=== PATIENT | female | born 2000 | race Caucasian/White ===

== ENCOUNTER 2018-06-28 22:24 | Emergency (ER) | payer MEDICAID ==
[~2018-06-28] VITALS: Ht 157.5 cm; Wt 77.0 kg
[~2018-06-28 22:24] MED LIST: DOCU-131 PO; IBUP-1222 PO; OXYC-302 PO; PREN1COM10 PO
[2018-06-28 22:27] VITALS: BP 135/78
== END 2018-06-28 23:11 | disposition home or self-care (01) ==
LOC: ED 23:05
DX: H10.33 Unspecified acute conjunctivitis, bilateral (principal)
CPT/HCPCS: 99283

== ENCOUNTER 2018-09-15 17:44 | Emergency (ER) | payer MEDICAID ==
[~2018-09-15] VITALS: Ht 157.5 cm; Wt 72.4 kg
[2018-09-15] MEDS ORDERED: PRENATAL VITS (17:50)
--- NOTE | 2018-09-15 18:06 | NUR ---
Pt presents for nausea and vomiting, increasing x 1 week. Pt states 9 weeks . No at this time. Only able to tolerate minimal po fluids. No abd pain or diarrhea, no discharge or bleeding. Appears NAD at this time.
[2018-09-15 18:29] LABS: BASOPHILS # (AUTO) 0.08 x10^3/uL (0-0.3); BASOPHILS % (AUTO) 1 % (0-1); EOSINOPHILS # (AUTO) 0.05 x10^3/uL (0-0.8); EOSINOPHILS % (AUTO) 0 % (1-7); LYMPHOCYTES # (AUTO) 1.76 x10^3/uL (1-6.1); LYMPHOCYTES % (AUTO) 15 % (22-44); MD NO; MEAN CORPUSCULAR HEMOGLOBIN 32.1 pg (27.0-34.8); MEAN CORPUSCULAR HGB CONC 34.6 g/dL (32.4-35.8); MEAN CORPUSCULAR VOLUME 92.6 fL (80-100); MEAN PLATELET VOLUME 9.1 fL (7.4-10.4); MONOCYTES # (AUTO) 1.13 x10^3/uL (0-1.4); MONOCYTES % (AUTO) 9 % (2-9); NEUTROPHILS # (AUTO) 9.07 x10^3/uL (1.8-8.0); NEUTROPHILS % (AUTO) 75 % (42-75); PLATELET COUNT 259 x10^3/uL (130-400); RED BLOOD COUNT 4.58 x10^6/uL (3.82-5.3); RED CELL DISTRIBUTION WIDTH 12.4 % (9.6-15.2)
[2018-09-15] MEDS ORDERED: ACETAMINOPHEN 500 MG TABLET PO ONE (18:30)
[2018-09-15] MEDS ORDERED: ONDANSETRON 2MG/ML, 2ML IVPush ONE (18:30)
[2018-09-15] MEDS ORDERED: SODIUM CHLORIDE 0.9% 1,000ML IVBOLUS ONE (18:30)
[2018-09-15 18:37] LABS: ALANINE AMINOTRANSFERASE 37 U/L (12-78); ALBUMIN 3.8 g/dL (3.4-5.0); ANION GAP 8 mmol/L (5-15); CHLORIDE 106 mmol/L (98-107)
[2018-09-15] MEDS ORDERED: ACETAMINOPHEN 500 MG TABLET ONE (18:38)
[2018-09-15] MEDS ORDERED: ONDANSETRON 2MG/ML, 2ML ONE (18:38)
[2018-09-15] MEDS ORDERED: PYRIDOXINE 25MG TABLET PO SCH (18:47)
--- NOTE | 2018-09-15 18:51 | NUR ---
Report to Emily GUTHRIE
[2018-09-15 18:55] LABS: ALKALINE PHOSPHATASE 122 U/L (45-117); BILIRUBIN,TOTAL 0.7 mg/dL (0.2-1.0); TOTAL PROTEIN 7.8 g/dL (6.4-8.2)
--- NOTE | 2018-09-15 19:04 | NUR ---
assumed care of pt, katrin piv meds given, ua sent to lab
[2018-09-15 19:08] VITALS: BP 114/72
--- NOTE | 2018-09-15 19:30 | NUR ---
po challenge given
[2018-09-15 19:42] LABS: MICROSCOPIC INDICATED
[2018-09-15 19:45] LABS: CULTURE INDICATED? NO
--- NOTE | 2018-09-15 19:58 | NUR ---
PT TOLERATED PO FLUID CHALLENGE
--- NOTE | 2018-09-15 20:19 | NUR ---
Patient/Caregiver given discharge instructions and they have confirmed that they understand the instructions. Patient ambulatory with steady gait.
[2018-09-15] MEDS ORDERED: DOXYLAMINE 25MG TABLET PO SCH (21:00)
== END 2018-09-15 20:19 | disposition home or self-care (01) ==
LOC: ED 18:33
DX: O21.1 Hyperemesis gravidarum with metabolic disturbance (principal); O26.891 Other specified pregnancy related conditions, first trimester; G44.209 Tension-type headache, unspecified, not intractable; E86.0 Dehydration; Z3A.09 9 weeks gestation of pregnancy; Z98.890 Other specified postprocedural states
CPT/HCPCS: 36415; 80053; 81001; 84702; 85025; 93005; 96361; 96374; 99284; J2405; J7030

== ENCOUNTER 2018-10-01 14:16 | Emergency (ER) | payer MEDICAID ==
[~2018-10-01] VITALS: Ht 157.5 cm; Wt 69.3 kg
[~2018-10-01 14:16] MED LIST changes: +PRENATAL VITS
[2018-10-01] MEDS ORDERED: ONDANSETRON ODT 4 MG PO ONE (15:30)
[2018-10-01 15:48] LABS: CULTURE INDICATED? YES; MICROSCOPIC INDICATED
[2018-10-01 16:12] LABS: BASOPHILS # (AUTO) 0.02 x10^3/uL (0-0.3); BASOPHILS % (AUTO) 0 % (0-1); EOSINOPHILS # (AUTO) 0.04 x10^3/uL (0-0.8); EOSINOPHILS % (AUTO) 0 % (1-7); LYMPHOCYTES # (AUTO) 1.39 x10^3/uL (1-6.1); LYMPHOCYTES % (AUTO) 14 % (22-44); MD NO; MEAN CORPUSCULAR HEMOGLOBIN 31.3 pg (27.0-34.8); MEAN CORPUSCULAR HGB CONC 34.3 g/dL (32.4-35.8); MEAN CORPUSCULAR VOLUME 91.3 fL (80-100); MEAN PLATELET VOLUME 8.9 fL (7.4-10.4); MONOCYTES # (AUTO) 0.75 x10^3/uL (0-1.4); MONOCYTES % (AUTO) 7 % (2-9); NEUTROPHILS # (AUTO) 8.04 x10^3/uL (1.8-8.0); NEUTROPHILS % (AUTO) 79 % (42-75); PLATELET COUNT 264 x10^3/uL (130-400); RED BLOOD COUNT 4.16 x10^6/uL (3.82-5.3); RED CELL DISTRIBUTION WIDTH 12.1 % (9.6-15.2)
[2018-10-01 16:27] LABS: ALANINE AMINOTRANSFERASE 64 U/L (12-78); ALBUMIN 3.7 g/dL (3.4-5.0); ANION GAP 10 mmol/L (5-15); CALCIUM 12.5 mg/dL (8.5-10.1); CHLORIDE 105 mmol/L (98-107)
[2018-10-01 16:44] LABS: ALKALINE PHOSPHATASE 115 U/L (45-117); BILIRUBIN,TOTAL 1.3 mg/dL (0.2-1.0); TOTAL PROTEIN 7.6 g/dL (6.4-8.2)
[2018-10-01 18:12] VITALS: BP 125/70
[2018-10-01] MEDS ORDERED: PREN-3 PO (18:15)
[2018-10-01] MEDS ORDERED: METOCLOPRAMIDE 10MG TABLET PO ONE (18:30)
[2018-10-01] MEDS ORDERED: METOCLOPRAMIDE 10MG TABLET ONE (18:37)
--- NOTE | 2018-10-01 18:49 | NUR ---
Pt report from anuel langley. This rn to assume care of pt. Awaiting successful po challenge for d/c.
[2018-10-01] MEDS ORDERED: ONDANSETRON ODT 4 MG ONE (18:57)
--- NOTE | 2018-10-01 19:10 | NUR ---
Pt still puking in room. Given zofran per mar at this time. Wctm.
--- NOTE | 2018-10-01 19:32 | NUR ---
No emesis noted post second multimedia author. Pt able to tolerate po intake at this time. Tbdc.
[2018-10-01] MEDS ORDERED: PROMETHAZINE 25 MG/ML, 1ML ONE (19:36)
--- NOTE | 2018-10-01 19:38 | NUR ---
Pt found puking again and "would like something stronger." prior to d/c. notified. this to give med per mar.
[2018-10-01] MEDS ORDERED: PROMETHAZINE 25 MG/ML, 1ML IM ONE (20:00)
== END 2018-10-01 19:56 | disposition home or self-care (01) ==
LOC: ED 18:25
DX: O21.9 Vomiting of pregnancy, unspecified (principal); O26.891 Other specified pregnancy related conditions, first trimester; R07.0 Pain in throat; R10.9 Unspecified abdominal pain; Z3A.11 11 weeks gestation of pregnancy
CPT/HCPCS: 36415; 76801; 80053; 81001; 84702; 85025; 87086; 96372; 99284; J2550; Q0162

== ENCOUNTER 2018-10-18 20:19 | Emergency (ER) | payer MEDICAID ==
[~2018-10-18] VITALS: Ht 157.5 cm; Wt 68.6 kg
[~2018-10-18 20:19] MED LIST changes: +PREN-3 PO
[2018-10-18 21:48] LABS: BASOPHILS # (AUTO) 0.03 x10^3/uL (0-0.3); BASOPHILS % (AUTO) 0 % (0-1); EOSINOPHILS # (AUTO) 0.01 x10^3/uL (0-0.8); EOSINOPHILS % (AUTO) 0 % (1-7); LYMPHOCYTES # (AUTO) 1.38 x10^3/uL (1-6.1); LYMPHOCYTES % (AUTO) 13 % (22-44); MD NO; MEAN CORPUSCULAR HEMOGLOBIN 31.8 pg (27.0-34.8); MEAN CORPUSCULAR HGB CONC 34.6 g/dL (32.4-35.8); MEAN CORPUSCULAR VOLUME 91.7 fL (80-100); MEAN PLATELET VOLUME 8.8 fL (7.4-10.4); MONOCYTES % (AUTO) 7 % (2-9); NEUTROPHILS # (AUTO) 8.54 x10^3/uL (1.8-8.0); NEUTROPHILS % (AUTO) 80 % (42-75); PLATELET COUNT 292 x10^3/uL (130-400); RED BLOOD COUNT 3.85 x10^6/uL (3.82-5.3); RED CELL DISTRIBUTION WIDTH 13.2 % (9.6-15.2)
--- NOTE | 2018-10-18 21:51 | NUR ---
PT C/O EPIGASTRIC PAIN FOR FIVE DAYS WITH N/V AND SPOTTING. PT IS 15 WEEKS . PT UP TO RESTROOM FOR UA SPECIMEN. DR. STEVEN AT BEDSIDE.
[2018-10-18 21:59] LABS: ALANINE AMINOTRANSFERASE 55 U/L (12-78); ALBUMIN 3.6 g/dL (3.4-5.0); ANION GAP 8 mmol/L (5-15); CALCIUM 12.7 mg/dL (8.5-10.1); CHLORIDE 107 mmol/L (98-107); CREATININE 0.81 mg/dL (0.55-1.02)
[2018-10-18] MEDS ORDERED: DIPHENHYDRAMINE 50 MG/ML, 1ML IVPush ONE (22:00)
[2018-10-18] MEDS ORDERED: ONDANSETRON 2MG/ML, 2ML IVPush ONE (22:00)
[2018-10-18] MEDS ORDERED: SODIUM CHLORIDE FLUSH 10ML SYR IVF ONE (22:00)
[2018-10-18] MEDS ORDERED: SODIUM CHLORIDE 0.9% 1,000ML IVBOLUS ONE (22:00)
[2018-10-18] MEDS ORDERED: PROMETHAZINE 25 MG/ML, 1ML IM ONE (22:00)
[2018-10-18 22:01] LABS: ALKALINE PHOSPHATASE 103 U/L (45-117); BILIRUBIN,TOTAL 1.3 mg/dL (0.2-1.0); TOTAL PROTEIN 7.7 g/dL (6.4-8.2)
--- NOTE | 2018-10-18 22:05 | NUR ---
REPORT OF PT FROM JERRI HOLLY AND ASSUMING CARE OF PT AT THIS TIME.
--- NOTE | 2018-10-18 22:08 | NUR ---
PT TO CT VIA [facility].
[2018-10-18 22:16] LABS: CULTURE INDICATED? YES; MICROSCOPIC INDICATED
[2018-10-18] MEDS ORDERED: DIPHENHYDRAMINE 50 MG/ML, 1ML ONE (22:18)
[2018-10-18] MEDS ORDERED: ONDANSETRON 2MG/ML, 2ML ONE (22:19)
[2018-10-18] MEDS ORDERED: PROMETHAZINE 25 MG/ML, 1ML ONE (22:19)
--- NOTE | 2018-10-18 22:39 | NUR ---
IV ACCESS ESTABLISHED. PT MEDICATED PER JUN.
[2018-10-18 23:50] VITALS: BP 123/72
--- NOTE | 2018-10-19 00:17 | NUR ---
PT D/C WITH D/C SUMMARY AND SCRIPTS. ALL QUESTIONS ANSWERED. PT AMBULATES TO REGISTRATION DESK WITH STEADY GAIT FOR D/C HOME. PT DENIES ANY OTHER NEEDS PERTAINING TO THIS VISIT. PT BEING D/C IN CARE OF SPOUSE FOR SAFE D/C HOME IN PRIVATE VEHICLE.
== END 2018-10-19 00:20 | disposition home or self-care (01) ==
LOC: ED 21:59
DX: O21.9 Vomiting of pregnancy, unspecified (principal); O26.892 Other specified pregnancy related conditions, second trimester; R10.13 Epigastric pain; E86.0 Dehydration; G43.C0 Periodic headache syndromes in child or adult, not intractable; Z3A.15 15 weeks gestation of pregnancy
CPT/HCPCS: 36415; 70450; 76700; 80053; 81001; 83690; 85025; 87086; 96361; 96372; 96374; 96375; 99284; J1200; J2405; J2550; J7030

== ENCOUNTER 2018-10-21 13:05 | Emergency (ER) | payer MEDICAID ==
[~2018-10-21] VITALS: Ht 157.5 cm; Wt 70.0 kg
--- NOTE | 2018-10-21 13:22 | NUR ---
PT REPORTS N/V WITH EPIGASTRIC PAIN THAT STARTED 3 DAYS AGO AND HAS CONTINUED INTO TODAY. DENIES DIARRHEA. PT WAS HERE 3 DAYS AGO FOR SAME COMPLAINT. Addendum: 10/21/18 at 1325 by BDICECCO N/V THAT STARTED 2 MONTHS AGO THAT HAS GOTTEN PROGRESSIVELY WORSE.
[2018-10-21] MEDS ORDERED: ONDANSETRON 2MG/ML, 2ML IVPush ONE (13:30)
[2018-10-21] MEDS ORDERED: SODIUM CHLORIDE FLUSH 10ML SYR IVF ONE (13:30)
[2018-10-21] MEDS ORDERED: SODIUM CHLORIDE 0.9% 1,000ML IVBOLUS ONE (13:30)
[2018-10-21] MEDS ORDERED: ONDANSETRON 2MG/ML, 2ML ONE (13:48)
[2018-10-21 13:53] LABS: BASOPHILS # (AUTO) 0.04 x10^3/uL (0-0.3); BASOPHILS % (AUTO) 0 % (0-1); EOSINOPHILS # (AUTO) 0.01 x10^3/uL (0-0.8); EOSINOPHILS % (AUTO) 0 % (1-7); LYMPHOCYTES # (AUTO) 0.89 x10^3/uL (1-6.1); LYMPHOCYTES % (AUTO) 8 % (22-44); MD NO; MEAN CORPUSCULAR HEMOGLOBIN 31.8 pg (27.0-34.8); MEAN CORPUSCULAR HGB CONC 34.6 g/dL (32.4-35.8); MEAN CORPUSCULAR VOLUME 92.1 fL (80-100); MONOCYTES # (AUTO) 0.57 x10^3/uL (0-1.4); MONOCYTES % (AUTO) 5 % (2-9); NEUTROPHILS # (AUTO) 9.28 x10^3/uL (1.8-8.0); NEUTROPHILS % (AUTO) 86 % (42-75); PLATELET COUNT 252 x10^3/uL (130-400); RED BLOOD COUNT 3.57 x10^6/uL (3.82-5.3); RED CELL DISTRIBUTION WIDTH 13.6 % (9.6-15.2)
[2018-10-21 14:04] LABS: ALBUMIN 3.4 g/dL (3.4-5.0); ANION GAP 7 mmol/L (5-15); CALCIUM 12.2 mg/dL (8.5-10.1); CHLORIDE 108 mmol/L (98-107)
[2018-10-21 14:07] LABS: ALANINE AMINOTRANSFERASE 41 U/L (12-78); ALKALINE PHOSPHATASE 87 U/L (45-117); BILIRUBIN,TOTAL 0.9 mg/dL (0.2-1.0); CREATININE 0.88 mg/dL (0.55-1.02)
[2018-10-21] MEDS ORDERED: ONDANSETRON ODT 4 MG ONE (14:08)
--- NOTE | 2018-10-21 14:10 | NUR ---
BREAK RN: UNABLE TO OBTAIN IV ACCESS AT THIS TIME, NOTIFIED. NEW ORDER FOR PO OFRAN 4MG RECEIVED AND IMPLEMENTED.
--- NOTE | 2018-10-21 14:13 | NUR ---
WENT TO GET PT FOR EXAM, IV BEING PUT IN
[2018-10-21 14:17] VITALS: BP 119/75
--- NOTE | 2018-10-21 14:18 | NUR ---
BREAK RN: PIV ESTABLISHED, VSS, IV FLUIDS INFUSING, PT TO CT.
[2018-10-21] MEDS ORDERED: ONDANSETRON ODT 4 MG PO ONE (14:30)
--- NOTE | 2018-10-21 14:37 | NUR ---
BREAK RN: PT BACK FROM US.
[2018-10-21] MEDS ORDERED: ACETAMINOPHEN 325 MG TABLET PO ONE (15:30)
[2018-10-21] MEDS ORDERED: ACETAMINOPHEN 325 MG TABLET ONE (15:30)
[2018-10-21 15:48] LABS: CULTURE INDICATED? YES; MICROSCOPIC INDICATED
--- NOTE | 2018-10-21 16:00 | NUR ---
pt medicated for headache per emar. pt states zofran did not help her nausea.
[2018-10-21] MEDS ORDERED: PROMETHAZINE 25 MG/ML, 1ML IM ONE (16:30)
[2018-10-21] MEDS ORDERED: ALUMINUM/MAG/SIMETHICONE 30 ML UDC PO PRN (16:30)
[2018-10-21] MEDS ORDERED: PROMETHAZINE 25 MG/ML, 1ML ONE (16:48)
[2018-10-21] MEDS ORDERED: ALUMINUM/MAG/SIMETHICONE 30 ML UDC ONE (16:48)
== END 2018-10-21 17:25 | disposition home or self-care (01) ==
LOC: ED 17:18
DX: O26.892 Other specified pregnancy related conditions, second trimester (principal); K29.00 Acute gastritis without bleeding; Z3A.15 15 weeks gestation of pregnancy
CPT/HCPCS: 36415; 76700; 80053; 81001; 83690; 85025; 87086; 96360; 96372; 99284; J2550; J7030; Q0162

== ENCOUNTER 2018-10-29 16:10 | Emergency (ER) | payer MEDICAID ==
[~2018-10-29] VITALS: Ht 167.6 cm; Wt 67.6 kg
[2018-10-29 16:45] LABS: CULTURE INDICATED? YES; MICROSCOPIC INDICATED
[2018-10-29] MEDS ORDERED: ONDANSETRON 2MG/ML, 2ML IVPush ONE (19:00)
[2018-10-29] MEDS ORDERED: SODIUM CHLORIDE FLUSH 10ML SYR IVF ONE (19:00)
[2018-10-29] MEDS ORDERED: SODIUM CHLORIDE 0.9% 1,000ML IVBOLUS ONE (19:00)
[2018-10-29 19:11] LABS: BASOPHILS # (AUTO) 0.01 x10^3/uL (0-0.3); BASOPHILS % (AUTO) 0 % (0-1); EOSINOPHILS # (AUTO) 0.15 x10^3/uL (0-0.8); EOSINOPHILS % (AUTO) 1 % (1-7); LYMPHOCYTES # (AUTO) 1.14 x10^3/uL (1-6.1); LYMPHOCYTES % (AUTO) 10 % (22-44); MD NO; MEAN CORPUSCULAR HEMOGLOBIN 31.7 pg (27.0-34.8); MEAN CORPUSCULAR HGB CONC 34.6 g/dL (32.4-35.8); MEAN CORPUSCULAR VOLUME 91.8 fL (80-100); MEAN PLATELET VOLUME 8.5 fL (7.4-10.4); MONOCYTES # (AUTO) 0.56 x10^3/uL (0-1.4); MONOCYTES % (AUTO) 5 % (2-9); NEUTROPHILS # (AUTO) 10.17 x10^3/uL (1.8-8.0); NEUTROPHILS % (AUTO) 85 % (42-75); PLATELET COUNT 313 x10^3/uL (130-400); RED BLOOD COUNT 3.67 x10^6/uL (3.82-5.3); RED CELL DISTRIBUTION WIDTH 14.2 % (9.6-15.2)
--- NOTE | 2018-10-29 19:15 | NUR ---
PT HAS PAINFUL URINATION AND ABDOMINAL PAIN. PT HAS BEEN STRUGGLING WITH NAUSEA AND VOMITING THROUGH HER .
[2018-10-29 19:24] LABS: ALANINE AMINOTRANSFERASE 56 U/L (12-78); ALBUMIN 3.6 g/dL (3.4-5.0); ANION GAP 10 mmol/L (5-15); CALCIUM 12.4 mg/dL (8.5-10.1); CHLORIDE 108 mmol/L (98-107); CREATININE 0.79 mg/dL (0.55-1.02)
[2018-10-29 19:26] LABS: ALKALINE PHOSPHATASE 105 U/L (45-117); BILIRUBIN,TOTAL 0.8 mg/dL (0.2-1.0); TOTAL PROTEIN 7.9 g/dL (6.4-8.2)
[2018-10-29 19:39] LABS: CULTURE INDICATED? YES; MICROSCOPIC INDICATED
--- NOTE | 2018-10-29 20:16 | NUR ---
UNABLE TO ESTABLISH IV. RN TO ATTEMPT ULTRASOUND GUIDED IV
[2018-10-29] MEDS ORDERED: ONDANSETRON 2MG/ML, 2ML ONE (20:29)
[2018-10-29] MEDS ORDERED: NITROFURANTOIN (MACROBID) 100 MG CAPSULE PO ONE (20:30)
[2018-10-29] MEDS ORDERED: ONDANSETRON ODT 4 MG PO ONE (20:30)
[2018-10-29] MEDS ORDERED: NITROFURANTOIN (MACROBID) 100 MG CAPSULE ONE (20:39)
--- NOTE | 2018-10-29 20:41 | NUR ---
IV ESTABLISHED, FLUIDS INFUSING AND MEDICATED PER ORDERS FOR NAUSEA AND WITH ANTIBIOTIC
--- NOTE | 2018-10-29 21:15 | NUR ---
REPORT TO CHRISTIANO GUTHRIE
--- NOTE | 2018-10-29 21:22 | NUR ---
REPORT RECEIVED, POC DISCUSSED, CARE ASSUMED. PT RESTING QUIETLY, NAD.
[2018-10-29] MEDS ORDERED: ONDANSETRON ODT 4 MG ONE (21:24)
--- NOTE | 2018-10-29 21:32 | NUR ---
MACROBID ADMINSTERED BY OFF GOING SHIFT.
[2018-10-29 21:53] VITALS: BP 124/79
== END 2018-10-29 21:56 | disposition home or self-care (01) ==
LOC: ED 20:42
DX: O23.12 Infections of bladder in pregnancy, second trimester (principal); O21.0 Mild hyperemesis gravidarum; O21.8 Other vomiting complicating pregnancy; Z3A.16 16 weeks gestation of pregnancy
CPT/HCPCS: 36415; 80053; 81001; 83690; 85025; 87077; 87086; 87186; 96361; 96374; 99283; J2405; J7030; Q0162

== ENCOUNTER 2018-11-04 19:40 | Emergency (ER) | payer MEDICAID ==
[~2018-11-04] VITALS: Ht 157.5 cm; Wt 66.8 kg
[2018-11-04] MEDS ORDERED: SODIUM CHLORIDE 0.9% 1,000 ML IV ONE (19:45)
[2018-11-04] MEDS ORDERED: ONDANSETRON 2MG/ML, 2ML IVPush ONE (20:00)
--- NOTE | 2018-11-04 20:08 | NUR ---
PRINCIPAL DEVELOPER: PT TO ROOM FROM KATIA ESTES
[2018-11-04 20:22] LABS: BASOPHILS # (AUTO) 0.02 x10^3/uL (0-0.3); BASOPHILS % (AUTO) 0 % (0-1); EOSINOPHILS % (AUTO) 0 % (1-7); LYMPHOCYTES # (AUTO) 1.02 x10^3/uL (1-6.1); LYMPHOCYTES % (AUTO) 8 % (22-44); MD NO; MEAN CORPUSCULAR HEMOGLOBIN 31.9 pg (27.0-34.8); MEAN CORPUSCULAR HGB CONC 34.4 g/dL (32.4-35.8); MEAN CORPUSCULAR VOLUME 92.7 fL (80-100); MEAN PLATELET VOLUME 8.3 fL (7.4-10.4); MONOCYTES # (AUTO) 0.63 x10^3/uL (0-1.4); MONOCYTES % (AUTO) 5 % (2-9); NEUTROPHILS # (AUTO) 11.23 x10^3/uL (1.8-8.0); NEUTROPHILS % (AUTO) 87 % (42-75); PLATELET COUNT 346 x10^3/uL (130-400); RED BLOOD COUNT 3.59 x10^6/uL (3.82-5.3); RED CELL DISTRIBUTION WIDTH 14.2 % (9.6-15.2)
[2018-11-04 20:31] LABS: ALBUMIN 3.5 g/dL (3.4-5.0); ANION GAP 11 mmol/L (5-15); CALCIUM 13.4 mg/dL (8.5-10.1); CHLORIDE 108 mmol/L (98-107); CREATININE 0.93 mg/dL (0.55-1.02)
--- NOTE | 2018-11-04 20:31 | NUR ---
PT IS 17 WEEKS PREGANANT. PT REPORTS SHE HAS BEEN DIZZY AND NOT FEELING WELL FOR 3 MONTHS. PT REPORTS SHE IS TAKING REGLAN. PT REPORTS ABD PAIN. PT REPORTS N/V AT HOME. PT REPORTS POSSIBILITY OF 20 EPISODES OF EMESIS AT HOME. PT HAS DRY MUCUS MEMBRANES AND HAS A OBGYN. PT DRESSED IN GOWN AND ATTACHED TO MONITOR. VSS, CALL LIGHT WITHIN REACH, FALL PRECAUTIONS IN PLACE.
--- NOTE | 2018-11-04 20:44 | NUR ---
TP AMBULATORY TO RESTROOM WITH STEADY GAIT FOR NEW UA.
[2018-11-04] MEDS ORDERED: ONDANSETRON 2MG/ML, 2ML ONE (21:07)
--- NOTE | 2018-11-04 21:16 | NUR ---
LAB CALLED REGARDING NEW UA THAT WAS SENT, NEW ORDER PLACED AND COLLECTED. LAB VERIFIED THAT UA IS IN PROCESS.
[2018-11-04 21:39] LABS: CULTURE INDICATED? YES; MICROSCOPIC INDICATED
[2018-11-04] MEDS ORDERED: METOCLOPRAMIDE 5 MG/ML, 2ML ONE (22:15)
[2018-11-04] MEDS ORDERED: ACETAMINOPHEN 500 MG TABLET ONE (22:15)
[2018-11-04 22:23] VITALS: BP 130/79
--- NOTE | 2018-11-04 22:24 | NUR ---
PT MEDICATED PER MAR, FAMILY AT BEDSIDE.
[2018-11-04] MEDS ORDERED: ACETAMINOPHEN 500 MG TABLET PO ONE (22:30)
[2018-11-04] MEDS ORDERED: METOCLOPRAMIDE 5 MG/ML, 2ML IVPush ONE (22:30)
[2018-11-04] MEDS ORDERED: SODIUM CHLORIDE 0.9% 1,000ML IVBOLUS ONE (22:30)
--- NOTE | 2018-11-04 22:44 | NUR ---
ALL RESULTS BACK AT THIS TIME, CHART UP FOR RECHECK.
--- NOTE | 2018-11-04 23:00 | NUR ---
Patient/Caregiver given discharge instructions and they have confirmed that they understand the instructions. Patient ambulatory with steady gait.
== END 2018-11-05 00:23 | disposition home or self-care (01) ==
LOC: ED 23:00
DX: O23.12 Infections of bladder in pregnancy, second trimester (principal); O21.9 Vomiting of pregnancy, unspecified; R42 Dizziness and giddiness; Z3A.17 17 weeks gestation of pregnancy
CPT/HCPCS: 36415; 76815; 80048; 81001; 82040; 84702; 85025; 87077; 87086; 87186; 96361; 96374; 96375; 99284; J2405; J2765; J7030

== ENCOUNTER 2018-11-19 11:22 | Emergency (ER) | payer MEDICAID ==
[~2018-11-19] VITALS: Ht 157.5 cm; Wt 65.8 kg
--- NOTE | 2018-11-19 11:33 | NUR ---
THERAPY DIRECTOR: [facility] CALLED
--- NOTE | 2018-11-19 11:34 | NUR ---
EKG performed in triage
--- NOTE | 2018-11-19 11:35 | NUR ---
Per labor and delivery patient is 18 weeks and will not be evaluated on labor and delivery unit.
[2018-11-19] MEDS ORDERED: ONDANSETRON ODT 4 MG PO ONE (12:00)
[2018-11-19 12:13] LABS: BASOPHILS # (AUTO) 0.02 x10^3/uL (0-0.3); BASOPHILS % (AUTO) 0 % (0-1); EOSINOPHILS # (AUTO) 0.08 x10^3/uL (0-0.8); EOSINOPHILS % (AUTO) 1 % (1-7); LYMPHOCYTES # (AUTO) 1.11 x10^3/uL (1-6.1); LYMPHOCYTES % (AUTO) 15 % (22-44); MD NO; MEAN CORPUSCULAR HEMOGLOBIN 32.5 pg (27.0-34.8); MEAN CORPUSCULAR HGB CONC 34.4 g/dL (32.4-35.8); MEAN CORPUSCULAR VOLUME 94.5 fL (80-100); MEAN PLATELET VOLUME 8.3 fL (7.4-10.4); MONOCYTES # (AUTO) 0.87 x10^3/uL (0-1.4); MONOCYTES % (AUTO) 12 % (2-9); NEUTROPHILS # (AUTO) 5.29 x10^3/uL (1.8-8.0); NEUTROPHILS % (AUTO) 72 % (42-75); PLATELET COUNT 273 x10^3/uL (130-400); RED BLOOD COUNT 3.25 x10^6/uL (3.82-5.3)
--- NOTE | 2018-11-19 12:17 | NUR ---
MANAGER TREASURY: PT CURRENTLY IN US, TO BE BROUGHT TO ED ROOM 14 ONCE US COMPLETED
[2018-11-19 12:52] LABS: ALBUMIN 3.2 g/dL (3.4-5.0); ANION GAP 8 mmol/L (5-15); CALCIUM 13.5 mg/dL (8.5-10.1); CHLORIDE 105 mmol/L (98-107)
[2018-11-19 12:53] LABS: CREATININE 1.05 mg/dL (0.55-1.02)
[2018-11-19] MEDS ORDERED: FAMOTIDINE 20 MG/2 ML ONE (13:18)
[2018-11-19] MEDS ORDERED: ONDANSETRON 2MG/ML, 2ML ONE (13:18)
[2018-11-19] MEDS ORDERED: ONDANSETRON 2MG/ML, 2ML IVPush ONE (13:30)
[2018-11-19] MEDS ORDERED: FAMOTIDINE 20 MG/2 ML IVP ONE (13:30)
[2018-11-19] MEDS ORDERED: SODIUM CHLORIDE 0.9% 1,000ML IVBOLUS ONE (13:30)
[2018-11-19] MEDS ORDERED: SODIUM CHLORIDE FLUSH 10ML SYR IVF ONE (13:30)
--- NOTE | 2018-11-19 13:39 | NUR ---
PT HAS CO OF NAUSE AND VOMITING. 20 WEEKS . PT STATES " THE NAUSEA AND VOMITNG HAS ALWAYS BEEN THERE". IV ESTABLISHED. MEDICATED PER MD ORDERS
[2018-11-19 13:49] LABS: MICROSCOPIC INDICATED
[2018-11-19 13:50] LABS: CULTURE INDICATED? YES
[2018-11-19] MEDS ORDERED: CEFTRIAXONE PMX 1GM/50ML 50 ML IVPB ONE (14:00)
[2018-11-19] MEDS ORDERED: CEFTRIAXONE PMX 1GM/50ML 50 ML ONE (14:03)
--- NOTE | 2018-11-19 14:08 | NUR ---
PT RESTING COMFORTABLE. VS STABLE.
[2018-11-19] MEDS ORDERED: METOCLOPRAMIDE 5 MG/ML, 2ML IVPush ONE (15:00)
[2018-11-19] MEDS ORDERED: METOCLOPRAMIDE 5 MG/ML, 2ML ONE (15:04)
--- NOTE | 2018-11-19 15:08 | NUR ---
PT HAS CO OF NAUSEA. MEDICATED PER MD ORDER. ALSO HAS CO OF HEADACHE. PAIN 11/30
[2018-11-19 16:10] VITALS: BP 110/80
--- NOTE | 2018-11-19 16:10 | NUR ---
Patient/Caregiver given discharge instructions and they have confirmed that they understand the instructions. Patient ambulatory with steady gait.
[2018-11-29] MEDS ORDERED: VIT PO (15:19)
[2018-11-29] MEDS ORDERED: ONDA4TAB12 PO (15:20)
[2018-11-29] MEDS ORDERED: PROM25SU34 RC (15:21)
[2018-11-29] MEDS ORDERED: DOXY25TA18 PO (15:22)
== END 2018-11-19 16:12 | disposition home or self-care (01) ==
LOC: ED 14:53
DX: O23.12 Infections of bladder in pregnancy, second trimester (principal); O21.0 Mild hyperemesis gravidarum; Z3A.20 20 weeks gestation of pregnancy
CPT/HCPCS: 36415; 76815; 80048; 81001; 82040; 85025; 87077; 87086; 87186; 93005; 96374; 96375; 99284; J0696; J2405; J2765; J3490; J7030

== ENCOUNTER 2018-11-23 21:01 | Observation (INO) | payer MEDICAID ==
[~2018-11-23] VITALS: Ht 157.5 cm; Wt 68.2 kg
[2018-11-23] MEDS ORDERED: ONDANSETRON 2MG/ML, 2ML ONE (21:25)
[2018-11-23] MEDS ORDERED: ONDANSETRON 2MG/ML, 2ML IVPush PRN (21:30)
[2018-11-23] MEDS ORDERED: D5%-LACTATED RINGERS 1,000 ML IV SCH (21:30)
[2018-11-23] MEDS: D5%-LACTATED RINGERS 1,000 ML IV SCH ×2 (21:44→23:47)
[2018-11-23 21:48] VITALS: BP 111/63
[2018-11-23] MEDS ORDERED: ONDA4TAB7 PO (22:03)
[2018-11-23] MEDS ORDERED: METO5TAB57 PO (22:03)
[2018-11-23] MEDS ORDERED: PREN1TAB60 PO (22:03)
[2018-11-23 23:28] LABS: MICROSCOPIC INDICATED
[2018-11-23] MEDS ORDERED: METOCLOPRAMIDE 5 MG/ML, 2ML ONE (23:45)
[2018-11-24] MEDS ORDERED: METOCLOPRAMIDE 5 MG/ML, 2ML IVPush ONE
[2018-11-24] MEDS ORDERED: D5%-LACTATED RINGERS 1,000 ML IV SCH
[2018-11-29] MEDS ORDERED: VIT PO (15:19)
[2018-11-29] MEDS ORDERED: ONDA4TAB12 PO (15:20)
[2018-11-29] MEDS ORDERED: PROM25SU34 RC (15:21)
[2018-11-29] MEDS ORDERED: DOXY25TA18 PO (15:22)
== END 2018-11-24 01:37 | disposition home or self-care (01) ==
LOC: LDOP 21:01 → LDIP 23:55
PROVIDERS: ADMIT Obstetrics & Gynecology; ATTEND Obstetrics & Gynecology
DX: O21.9 Vomiting of pregnancy, unspecified (principal); Z3A.20 20 weeks gestation of pregnancy
CPT/HCPCS: 81001; 87086; 96361; 96374; 96375; 99201; G0378; J2405; J2765; J7121; 96360; G0463

== ENCOUNTER 2018-11-26 18:37 | Inpatient (IN) | payer MEDICAID ==
[~2018-11-26] VITALS: Ht 157.5 cm; Wt 65.9 kg
[2018-11-26 18:55] VITALS: BP 121/70
== END 2018-11-29 15:39 | disposition home or self-care (01) | DRG 833 ==
LOC: LDOP 18:37 → LDIP 20:30 → OBSVTOIN 11-27 10:04
PROVIDERS: ADMIT Obstetrics & Gynecology; ATTEND Obstetrics & Gynecology
DX: O21.1 Hyperemesis gravidarum with metabolic disturbance (principal); O99.012 Anemia complicating pregnancy, second trimester; O99.282 Endocrine, nutritional and metabolic diseases complicating pregnancy, second trimester; Z3A.20 20 weeks gestation of pregnancy
CPT/HCPCS: 36415; 87806; J7121; 80053; 81001; 81003; 82607; 82728; 83021; 83540; 83550; 85025; 85660; 86592; 86762; 86850; 86900; 87340; G0378; J1756; J2405; J2550; J3411; J3480; G0475; J2765; J7050; J7120

== ENCOUNTER 2019-03-06 13:27 | Observation (INO) | payer MEDICAID ==
[~2019-03-06] VITALS: Ht 157.5 cm; Wt 68.2 kg
[~2019-03-06 13:27] MED LIST changes: +DOXY25TA18 PO; +METO5TAB57 PO; +ONDA4TAB12 PO; +ONDA4TAB7 PO; +PREN1TAB60 PO; +PROM25SU34 RC; +VIT PO
[2019-03-06] MEDS ORDERED: LACTATED RINGERS 1,000 ML IVBOLUS ONE (14:30)
[2019-03-06] MEDS ORDERED: ONDANSETRON 2MG/ML, 2ML IVPush PRN (14:30)
[2019-03-06] MEDS ORDERED: LACTATED RINGERS 1,000 ML IV SCH (14:30)
[2019-03-06] MEDS ORDERED: CEFTRIAXONE PMX 1GM/50ML 50 ML IV SCH (14:30)
[2019-03-06] MEDS ORDERED: ONDANSETRON 2MG/ML, 2ML ONE (14:49)
[2019-03-06] MEDS ORDERED: PLEASE ENTER HEIGHT AND WEIGHT MC SCH (15:00)
[2019-03-06 16:58] LABS: CULTURE INDICATED? YES; MICROSCOPIC INDICATED
== END 2019-03-06 18:27 | disposition home or self-care (01) ==
LOC: LDOP 13:27 → LDIP 15:20
PROVIDERS: ADMIT Obstetrics & Gynecology; ATTEND Obstetrics & Gynecology
DX: O21.2 Late vomiting of pregnancy (principal); O26.892 Other specified pregnancy related conditions, second trimester; R10.9 Unspecified abdominal pain; Z3A.26 26 weeks gestation of pregnancy
CPT/HCPCS: 59025; 76770; 81001; 87077; 87086; 87186; 96360; 96365; 96375; 99211; G0378; J0696; J2405; J7120; 96361; G0463

== ENCOUNTER 2019-04-03 23:50 | Outpatient (CLI) | payer MEDICAID ==
[~2019-04-03] VITALS: Ht 157.5 cm; Wt 68.0 kg
[2019-04-04 00:14] VITALS: BP 119/71
[2019-04-04 02:23] LABS: MICROSCOPIC INDICATED
[2019-04-04 02:24] LABS: CULTURE INDICATED? YES
== END 2019-04-04 03:30 | disposition home or self-care (01) ==
LOC: LDOP 23:50
PROVIDERS: ATTEND Obstetrics & Gynecology
DX: O26.893 Other specified pregnancy related conditions, third trimester (principal); R10.9 Unspecified abdominal pain; Z3A.38 38 weeks gestation of pregnancy
CPT/HCPCS: 59025; 81001; 87086; 99211; G0463

== ENCOUNTER 2019-04-08 10:16 | Inpatient (IN) | payer MEDICAID ==
[~2019-04-08] VITALS: Ht 157.5 cm; Wt 68.1 kg
[2019-04-08] MEDS ORDERED: LACTATED RINGERS 1,000 ML IV SCH (10:20)
[2019-04-08] MEDS ORDERED: ONDANSETRON 2MG/ML, 2ML IVPush ONE (10:30)
[2019-04-08] MEDS ORDERED: LACTATED RINGERS 1,000 ML IVBOLUS ONE (10:30)
[2019-04-08] MEDS ORDERED: SODIUM CITRATE/CITRIC ACID 30 ML UDC PO ONE (10:30)
[2019-04-08] MEDS ORDERED: METOCLOPRAMIDE 5 MG/ML, 2ML IV ONE (10:30)
[2019-04-08 10:37] VITALS: BP 129/85
[2019-04-08] MEDS ORDERED: NEWBORN KIT ONE (10:45)
[2019-04-08] MEDS ORDERED: METOCLOPRAMIDE 5 MG/ML, 2ML ONE (10:45)
[2019-04-08] MEDS ORDERED: OXYTOCIN 30U/ 0.9% NaCL 500ML 500 ML ONE (10:46)
[2019-04-08] MEDS ORDERED: SODIUM CITRATE/CITRIC ACID 30 ML UDC ONE (10:46)
[2019-04-08 11:02] LABS: BASOPHILS # (AUTO) 0.01 x10^3/uL (0-0.3); BASOPHILS % (AUTO) 0 % (0-1); EOSINOPHILS % (AUTO) 1 % (1-7); LYMPHOCYTES # (AUTO) 1.33 x10^3/uL (1-6.1); LYMPHOCYTES % (AUTO) 19 % (22-44); MD NO; MEAN CORPUSCULAR HEMOGLOBIN 32.8 pg (27.0-34.8); MEAN CORPUSCULAR HGB CONC 33.9 g/dL (32.4-35.8); MEAN CORPUSCULAR VOLUME 96.8 fL (80-100); MEAN PLATELET VOLUME 9.3 fL (7.4-10.4); MONOCYTES # (AUTO) 0.35 x10^3/uL (0-1.4); MONOCYTES % (AUTO) 5 % (2-9); NEUTROPHILS # (AUTO) 5.12 x10^3/uL (1.8-8.0); NEUTROPHILS % (AUTO) 74 % (42-75); PLATELET COUNT 254 x10^3/uL (130-400); RED BLOOD COUNT 3.68 x10^6/uL (3.82-5.3); RED CELL DISTRIBUTION WIDTH 13.7 % (9.6-15.2)
[2019-04-08] MEDS ORDERED: KETOROLAC 30 MG/1 ML ONE (11:17)
[2019-04-08] MEDS ORDERED: PHENYLEPHRINE 10 MG/ML ONE (11:17)
[2019-04-08] MEDS ORDERED: EPHEDRINE 50 MG/ML, 1ML ONE (11:17)
[2019-04-08] MEDS ORDERED: CEFAZOLIN 1,000 MG ONE (11:17)
[2019-04-08] MEDS ORDERED: FENTANYL PF 100 MCG/2ML ONE (11:17)
[2019-04-08] MEDS ORDERED: DEXAMETHASONE 4 MG/ML, 1ML ONE (11:17)
[2019-04-08] MEDS ORDERED: OXYTOCIN 10 UNITS/ML, 1ML ONE (11:17)
[2019-04-08] MEDS ORDERED: ONDANSETRON 2MG/ML, 2ML ONE (11:17)
[2019-04-08] MEDS ORDERED: HYDROmorphone 2 MG/ML, 1ML ONE (11:18)
[2019-04-08] MEDS ORDERED: FENTANYL PF 100 MCG/2ML IV PRN (11:30)
[2019-04-08] MEDS ORDERED: EPHEDRINE 50 MG/ML, 1ML IVPush PRN (11:30)
[2019-04-08] MEDS ORDERED: hydrALAzine 20 MG/ML, 1ML IV PRN (11:30)
[2019-04-08] MEDS ORDERED: MIDAZOLAM 1 MG/ML, 2ML IV PRN (11:30)
[2019-04-08] MEDS ORDERED: HYDROmorphone 2 MG/ML, 1ML IVPush PRN (11:30)
[2019-04-08] MEDS ORDERED: MEPERIDINE/PF 25MG/0.5ML IVPush PRN (11:30)
[2019-04-08] MEDS ORDERED: PROMETHAZINE 25 MG/ML, 1ML IV PRN (11:30)
[2019-04-08] MEDS ORDERED: METOPROLOL 1 MG/ML, 5ML IV PRN (11:30)
[2019-04-08] MEDS ORDERED: HYDROcodone/APAP 7.5-325MG/15ML UDC PO PRN (11:30)
[2019-04-08] MEDS ORDERED: OXYcodone 5 MG/5 ML ORAL.SOL UDC PO PRN (11:30)
[2019-04-08] MEDS ORDERED: ONDANSETRON 2MG/ML, 2ML IVPush PRN (11:30)
[2019-04-08] MEDS ORDERED: ALBUTEROL SULFATE 2.5 MG/3 ML NPPB PRN (11:30)
[2019-04-08] MEDS ORDERED: LABETALOL 5MG/ML, 20ML IV PRN (11:30)
[2019-04-08] MEDS: LACTATED RINGERS 1,000 ML IV SCH ×4 (12:34→22:34)
[2019-04-08] MEDS ORDERED: TRANEXAMIC ACID 1,000 MG in SODIUM CHLORIDE 0.9% 100 ML IVPB ONE (13:00)
[2019-04-08] MEDS ORDERED: TRANEXAMIC ACID 100 MG/ML, 10ML IV ONE (13:00)
[2019-04-08] MEDS ORDERED: METHYLERGONOVINE 0.2 MG/ML IM PRN (13:00)
[2019-04-08] MEDS ORDERED: SIMETHICONE 80 MG CHEW TAB PO PRN (13:00)
[2019-04-08] MEDS ORDERED: MISOPROSTOL 200 MCG TABLET PR PRN (13:00)
[2019-04-08] MEDS ORDERED: ONDANSETRON 2MG/ML, 2ML IV PRN (13:00)
[2019-04-08] MEDS: OXYTOCIN 30U/ 0.9% NaCL 500ML 500 ML IV SCH ×2 (13:05→22:34)
[2019-04-08] MEDS ORDERED: OXYcodone 5 MG/5 ML ORAL.SOL UDC ONE (13:54)
[2019-04-08 15:00] VITALS: BP 124/76
[2019-04-08] MEDS: KETOROLAC 30 MG/1 ML IV SCH (18:26)
[2019-04-08] MEDS: OXYcodone/APAP 5/325MG TABLET PO PRN (18:29)
[2019-04-08 19:30] VITALS: BP 117/73
[2019-04-08 20:58] LABS: BASOPHILS # (AUTO) 0.03 x10^3/uL (0-0.3); BASOPHILS % (AUTO) 0 % (0-1); EOSINOPHILS # (AUTO) 0.27 x10^3/uL (0-0.8); EOSINOPHILS % (AUTO) 2 % (1-7); LYMPHOCYTES # (AUTO) 0.84 x10^3/uL (1-6.1); LYMPHOCYTES % (AUTO) 6 % (22-44); MD NO; MEAN CORPUSCULAR HEMOGLOBIN 33.1 pg (27.0-34.8); MEAN CORPUSCULAR VOLUME 97.4 fL (80-100); MEAN PLATELET VOLUME 8.9 fL (7.4-10.4); MONOCYTES # (AUTO) 0.57 x10^3/uL (0-1.4); MONOCYTES % (AUTO) 4 % (2-9); NEUTROPHILS # (AUTO) 12.73 x10^3/uL (1.8-8.0); NEUTROPHILS % (AUTO) 88 % (42-75); PLATELET COUNT 216 x10^3/uL (130-400); RED BLOOD COUNT 3.23 x10^6/uL (3.82-5.3); RED CELL DISTRIBUTION WIDTH 13.6 % (9.6-15.2)
[2019-04-09] MEDS: KETOROLAC 30 MG/1 ML IV SCH (00:19)
[2019-04-09] MEDS: OXYcodone/APAP 5/325MG TABLET PO PRN ×4 (00:21→18:48)
[2019-04-09 00:30] VITALS: BP 116/70
[2019-04-09] MEDS: IBUPROFEN 600 MG TABLET PO PRN ×3 (02:27→18:46)
[2019-04-09 04:15] VITALS: BP 109/66
[2019-04-09] MEDS: LACTATED RINGERS 1,000 ML IV SCH ×5 (04:34→20:34)
[2019-04-09 08:00] VITALS: BP 106/65
[2019-04-09] MEDS: OXYTOCIN 30U/ 0.9% NaCL 500ML 500 ML IV SCH ×2 (08:34→18:34)
[2019-04-09] MEDS: PRENATAL VIT/IRON/FA 1 EACH TABLET PO SCH (11:08)
[2019-04-09] MEDS: DOCUSATE 100 MG CAPSULE PO PRN (11:08)
[2019-04-09 13:00] VITALS: BP 117/68
[2019-04-09 20:00] VITALS: BP 123/82
[2019-04-10] MEDS: IBUPROFEN 600 MG TABLET PO PRN ×3 (00:48→15:35)
[2019-04-10] MEDS: DOCUSATE 100 MG CAPSULE PO PRN (00:48)
[2019-04-10] MEDS: OXYcodone/APAP 5/325MG TABLET PO PRN ×3 (00:49→15:36)
[2019-04-10] MEDS: OXYTOCIN 30U/ 0.9% NaCL 500ML 500 ML IV SCH ×2 (04:34→14:34)
[2019-04-10] MEDS: LACTATED RINGERS 1,000 ML IV SCH ×5 (04:34→20:34)
[2019-04-10 07:30] VITALS: BP 128/87
[2019-04-10] MEDS: PRENATAL VIT/IRON/FA 1 EACH TABLET PO SCH (09:00)
[2019-04-10] MEDS ORDERED: ONDANSETRON ODT 4 MG PO PRN (10:00)
[2019-04-10 20:00] VITALS: BP 120/76
[2019-04-11] MEDS: LACTATED RINGERS 1,000 ML IV SCH (00:34)
[2019-04-11] MEDS: OXYTOCIN 30U/ 0.9% NaCL 500ML 500 ML IV SCH (00:34)
[2019-04-11] MEDS: IBUPROFEN 600 MG TABLET PO PRN (03:51)
[2019-04-11] MEDS: OXYcodone/APAP 5/325MG TABLET PO PRN ×2 (03:52→08:52)
[2019-04-11 08:20] VITALS: BP 130/88
[2019-04-11] MEDS: PRENATAL VIT/IRON/FA 1 EACH TABLET PO SCH (08:50)
[2019-04-11] MEDS: DOCUSATE 100 MG CAPSULE PO PRN (08:51)
[2019-04-11] MEDS ORDERED: OXYC-302 PO (11:51)
[2019-04-11] MEDS ORDERED: DOCU-131 PO (11:55)
[2019-04-11] MEDS ORDERED: IBUP100T7 PO (11:55)
== END 2019-04-11 14:05 | disposition home or self-care (01) | DRG 788 ==
LOC: LDIP 10:16 → 2NW 14:20
PROVIDERS: ADMIT Obstetrics & Gynecology; ATTEND Obstetrics & Gynecology
PROC: 10D00Z1 Extraction of Products of Conception, Low, Open Approach (ICD-10-PCS; principal; 2019-04-08)
DX: O34.211 Maternal care for low transverse scar from previous cesarean delivery (principal); Z37.0 Single live birth; O69.81X0 Labor and delivery complicated by cord around neck, without compression, not applicable or unspecified; Z3A.39 39 weeks gestation of pregnancy; O32.1XX0 Maternal care for breech presentation, not applicable or unspecified; Z3A.00 Weeks of gestation of pregnancy not specified
CPT/HCPCS: 36415; 85025; 86850; 86900; G0378; J0690; J1100; J1170; J1885; J2405; J3010; Q0162; J2370; J2590; J2765; J7120